=== PATIENT | female | born 1990 | race Caucasian/White ===

== ENCOUNTER 2019-01-09 03:21 | Emergency (ER) | payer MEDICAID, OTHER ==
[~2019-01-09] VITALS: Ht 154.9 cm; Wt 56.8 kg
[~2019-01-09 03:21] MED LIST: DIPH-423 PO
[2019-01-09] MEDS ORDERED: metoclopramide 5 mg/ml inj IV ONE (03:25)
[2019-01-09] MEDS ORDERED: LORazepam 2 mg/ml vial IV ONE ×2 (03:25→05:45)
[2019-01-09] MEDS ORDERED: diphenhydrAMINE 50 mg/ml inj IV ONE (03:25)
[2019-01-09] MEDS ORDERED: normal saline 1000ML IV soln IVB ONE ×2 (03:25)
[2019-01-09 03:45] LABS: BASOPHILS % (AUTO) 0.1 % (0-1); EOSINOPHILS % (AUTO) 0.1 % (0-6); HEMATOCRIT 38.2 % (35.0-45.0); LYMPHOCYTES # (AUTO) 0.6 X10'3 (1.1-4.8); LYMPHOCYTES % (AUTO) 2.5 % (21-51); MEAN CORPUSCULAR HEMOGLOBIN 33.7 PG (27.0-31.0); MEAN CORPUSCULAR VOLUME 99.2 FL (78-98); MEAN PLATELET VOLUME 6.8 FL (7.4-10.4); MONOCYTES # (AUTO) 1.1 X10'3 (0-0.9); NEUTROPHILS # (AUTO) 20.7 X10'3 (1.8-7.7); NEUTROPHILS % (AUTO) 92.3 % (42-75); PLATELET COUNT 514 X10'3 (140-440); RED BLOOD COUNT 3.85 X10'6 (4.20-5.60); RED CELL DISTRIBUTION WIDTH 12.7 % (11.5-14.5); WHITE BLOOD COUNT 22.4 X10'3 (4.5-11.0)
[2019-01-09 03:58] LABS: ALANINE AMINOTRANSFERASE 58 U/L (12-78); ALBUMIN 4.5 G/DL (3.4-5.0); ALBUMIN/GLOBULIN RATIO 1.5 (1.1-1.5); ALKALINE PHOSPHATASE 77 IU/L (46-116); ANION GAP 14 (8-16); ASPARTATE AMINO TRANSFERASE 23 U/L (10-37); BILIRUBIN,TOTAL 0.8 MG/DL (0.1-1.0); BLOOD UREA NITROGEN 19 MG/DL (7-18); CALCIUM 9.6 MG/DL (8.5-10.1); CHLORIDE 103 MMOL/L (99-107); CREATININE 0.95 MG/DL (0.40-0.90); GLUCOSE 191 MG/DL (70-104); LIPASE < 50 U/L (73-393); POTASSIUM 3.5 MMOL/L (3.5-5.1); SODIUM 140 MMOL/L (135-145); TOTAL CARBON DIOXIDE 23.3 MMOL/L (24-32); TOTAL PROTEIN 7.5 G/DL (6.4-8.2); eGFR 70 ML/MIN
--- NOTE | 2019-01-09 04:15 | NUR ---
1st liter ns infused, pt attempting to void and unsuccessful. dr. grandefs aware. holding ativan until pt's status confirmed.
[2019-01-09] MEDS ORDERED: ketorolac trometh. 30mg/ml inj. IV ONE (04:55)
[2019-01-09] MEDS ORDERED: haloperidol lactate 5mg/ml inj IM ONE (05:00)
[2019-01-09] MEDS ORDERED: ONDA4TAB12 PO (05:13)
[2019-01-09 05:35] LABS: CLARITY,URINE CLEAR (Clear); COLOR,URINE YELLOW (Yellow); GLUCOSE, URINE NEGATIVE (Neg); KETONES,URINE NEGATIVE (Neg); LEUKOCYTE ESTERASE ,URINE NEGATIVE (Neg); NITRITES, URINE NEGATIVE (Neg); OCCULT BLOOD,URINE SMALL (Neg); PROTEIN,URINE NEGATIVE (Neg); UROBILINOGEN,URINE 0.2 E.U/dL (0.2-1.0)
[2019-01-09 05:37] LABS: UA COLLECTION TYPE CLN CATCH MIDSTREAM
[2019-01-09 05:39] LABS: URINE HCG NEGATIVE (NEG)
[2019-01-09 05:41] LABS: BACTERIA,URINE NONE SEEN /HPF (Neg); MUCUS STRANDS FEW /LPF (Neg); RBC,URINE 0-2 /HPF (0-2); SQUAMOUS EPITHELIAL CELL,UR FEW /LPF (FEW); WBC,URINE NONE SEEN /HPF (0-4)
[2019-01-09] MEDS ORDERED: normal saline 1000ml 1,000 ML IV ONE (05:45)
[2019-01-09] MEDS ORDERED: ondansetron/PF 4mg/2ml inj IV ONE (05:45)
[2019-01-09] MEDS: LIDOcaine Viscous 15ml cup PO ONE ×2 (05:55→07:13)
[2019-01-09] MEDS: mag hydrox/Alum hydrox/simeth 30ml oral suspension PO ONE ×2 (05:55→07:13)
--- NOTE | 2019-01-09 06:00 | NUR ---
dr. grandefs talking with pt , pt to be given toradol, haldol,ativan and zofran, as her symptoms have minimally improved. He has ordered gi cocktail if this is not helpful. pt with friend at bedside and stable vs.
[2019-01-09 07:30] VITALS: BP 116/81
== END 2019-01-09 07:31 | disposition home or self-care (01) ==
LOC: ER 03:22
DX: R07.89 Other chest pain (principal); R11.2 Nausea with vomiting, unspecified; R06.02 Shortness of breath; R10.13 Epigastric pain; F12.90 Cannabis use, unspecified, uncomplicated; Z98.890 Other specified postprocedural states
CPT/HCPCS: 36415; 71045; 80053; 81001; 81025; 83690; 84145; 85025; 96361; 96372; 96374; 96375; 99284; J1200; J1630; J1885; J2060; J2405; J2765; J7030